=== PATIENT | male | born 1985 | race Caucasian/White ===

== ENCOUNTER 2017-07-16 08:26 | Emergency (ER) | payer OTHER ==
[~2017-07-16] VITALS: Ht 157.5 cm; Wt 72.6 kg
[2017-07-16] MEDS ORDERED: BENADRYL50 MG (09:03)
[2017-07-16] MEDS ORDERED: HALOPERIDOL10 MG (09:03)
[2017-07-16] MEDS ORDERED: DEPAKOTE SPRIN125 MG (09:03)
[2017-07-16] MEDS ORDERED: ATIVAN1 MG (09:03)
== END 2017-07-16 12:16 | disposition home or self-care (01) ==
LOC: ER 08:26
DX: S82.54XA Nondisplaced fracture of medial malleolus of right tibia, initial encounter for closed fracture (principal); W18.39XA Other fall on same level, initial encounter; Y93.89 Activity, other specified; Y92.89 Other specified places as the place of occurrence of the external cause; Y99.8 Other external cause status